=== PATIENT | female | born 1990 | race Caucasian/White ===

== ENCOUNTER 2019-04-09 17:18 | Emergency (ER) | payer OTHER, SELFPAY ==
[2019-04-09 17:28] VITALS: BP 127/72; PULSE 88; RESP 15; TEMP 37.3; O2SAT 100; BMI 18.8
[2019-04-09 18:01] LABS: Add Manual Diff / Slide Review NO; Basophils Absolute Auto 0 /uL (0-100); Basophils Percent Auto 0.3 % (0-2); Eosinophils Absolute Auto 300 /uL (0-450); Eosinophils Percent Auto 3.2 % (2-4); Hematocrit 37.3 % (36-46); Hemoglobin 12.5 g/dL (12.0-16.0); Lymphocytes Absolute Auto 2100 /uL (1100-4500); Lymphocytes Percent Auto 20.7 % (25-40); Mean Corpuscular HGB Conc 33.5 % (30-36); Mean Corpuscular Hemoglobin 29.4 PG (26-34); Mean Corpuscular Volume 87.7 fL (80-100); Monocytes Absolute Auto 600 /uL (0-900); Monocytes Percent Auto 6.2 % (3-14); Neutrophils Absolute Auto 7000 /uL (1500-7000); Neutrophils Percent Auto 69.6 % (50-75); Platelet Count 334 X10^3/uL (150-400); Red Blood Cell Count 4.25 X10^6/uL (4.0-5.2); Red Cell Distribution Width 14.3 % (11.6-14.8)
[2019-04-09 18:31] LABS: Alanine Aminotransferase 9 IU/L (9-52); Albumin 4.2 g/dL (3.5-5.0); Albumin Globulin Ratio 1.3 (1.0-2.8); Alkaline Phosphatase 58 U/L (38-126); Aspartate Aminotransferase 19 IU/L (14-36); BUN Creatinine Ratio 12.9 (6-22); Bilirubin Total 0.3 mg/dL (0.2-1.3); Blood Urea Nitrogen 9 mg/dL (7-17); Calcium 9.1 mg/dL (8.4-10.2); Carbon Dioxide 23 mmol/L (22-32); Chloride 106 mmol/L (98-107); Estimated Glomerular Filt Rate > 60.0 mL/min (>60); Globulin 3.2 g/dL (1.7-4.1); Glucose 99 mg/dL (70-100); HEMOLYSIS < 15 (0-50); Potassium 3.5 mmol/L (3.4-5.1); Sodium 138 mmol/L (137-145); Total Protein 7.4 g/dL (6.3-8.2)
--- NOTE | 2019-04-09 18:42 | ED_ITS ---
HPI - General Adult General Chief complaint: Dizziness Stated complaint: 10 wks preg,dizziness,numb hands Time Seen by Provider: 04/09/19 17:58 Source: patient Mode of arrival: ambulatory Limitations: no limitations History of Present Illness HPI narrative: 28-year-old at approximately 10 weeks EGA. Is not com plaining of any abdominal pain or vaginal bleeding or urinary symptoms. She states she is here for an episode that occurred today. Lasted approximately 1 hour where she had times where she felt like she was confused. States that she could not think of words that she wanted to stay. Generally did not feel very well. Had no chest pain or shortness of breath or palpitations during that time. She states she does have a history of migraines. States that her migraines do get worse when she is . Just prior to the onset of these symptoms she stated that she felt like she was going to get a migraine but did not have a full-blown headache. She states she had very similar symptoms skyler ral weeks ago that again started with her symptoms of a migraine. She states that that time the symptoms were not as bad as with a or today. The time my evaluation patient's symptoms had completely resolved. She has not tried anything for symptoms prior to arrival. Related Data Previous Rx's Medication Instructions Recorded ondansetron [Zofran ODT] 4 mg SUBLINGUAL Q6HP PRN #12 odt 09/14/17 oseltamivir [Tamiflu] 75 mg OR BID #10 cap 09/14/17 Allergies Allergy/AdvReac Type Severity Reaction Status Date / Time amoxicillin [AMOXICILLIN] Allergy Intermediate hives Unverified 12/10/17 12:30 Review of Systems Constitutional Denies fever(s) Eyes Comments: Blurry vision ENT Ears, Nose, Mouth, and Throat: Reports dizziness and Reports disequilibrium Cardiovascular Denies chest pain and Denies palpitations Respiratory Denies cough Gastrointestinal Gastrointestinal: Denies abdominal pain, Denies nausea and Denies vomiting Genitourinary Denies dysuria, Denies pelvic pain and Denies vaginal discharge Musculoskeletal Denies abnormal gait, Denies myalgias and Denies arthralgias Integumentary/Breasts Denies new lesions and Denies rash Neurologic Denies abnormal gait, Reports confusion, Reports dizziness, Denies focal weakness and Reports disequilibrium Psychiatric Reports confusion Endocrine Denies palpitations Hematologic/Lymphatic Denies easy bleeding and Denies easy bruising [facility] Medical History Migraines (Acute) Social History Smoking Status: Never smoker Social History Smoking Status: Never smoker Exam Initial Vital Signs Initial Vital Signs: Vital Signs Temperature 99.1 F 04/09/19 17:28 Pulse Rate 88 04/09/19 17:28 Respiratory Rate 15 04/09/19 17:28 Blood Pressure 127/72 04/09/19 17:28 Pulse Oximetry 100 04/09/19 17:28 Const General: cooperative, healthy appearing, comfortable, well developed and No acute distress Orientation: alert, awake and oriented x3 HENMT Head: normal to inspection and normocephalic Eyes Pupils: PERRL EOM: EOM intact bilaterally Resp Effort & Inspection: normal respiratory effort Auscultation: clear to auscultation bilaterally Cardio Rate: regular rate Rhythm: regular rhythm Pulses: radial pulses present GI Inspection: non-distended Palpation: soft, No firm and No tender Skin Lesions: no lesions Rashes: no rashes Neuro General: alert, awake and oriented x3 Cranial Nerves: CN's II-XI intact bilaterally Cognition: normal cognition Speech: speech normal Gait: normal gait Motor: muscle tone normal throughout Sensory Exam: no sensory deficits noted Coordination: [id number] test normal Extrem General: normal to inspection and capillary refill normal Psych Appearance: grossly normal and well kempt Scores GCS Cedar coma scale eye opening: Spontaneous Cedar coma scale verbal response: Orientated Cedar coma scale motor response: Obey commands Merrill coma scale total score: 15 NIH Stroke Scale Level of Conciousness: Alert, keenly responsive Ask month/age: Answers both questions correctly. Open/close eyes, close hand: Performs both tasks correctly Best gaze horizontal: Normal Visual downs: No visual loss Facial palsy: Normal symetrical movement Left arm drift: No drift for full 10 sec Right arm drift: No drift for full 10 sec Left leg drift: No drift for full 10 sec Right leg drift: No drift for full 10 sec Limb ataxia: Absent Sensory on face/arms/legs: Normal, no sensory loss Best language: No aphasia, normal Dysarthria: Normal Extinction or inattention: No abnormality Total NIH Stroke scale score: 0 Course Orders Ordered: ED Orders 04/09/19 17:55 CMP [Comprehensive Metabolic Panel] Stat Complete Blood Count AUTO DIFF Stat Vital Signs - 8 hr 04/09/19 17:28 04/09/19 18:53 04/09/19 19:11 Temperature 99.1 F Pulse Rate 88 70 77 Respiratory Rate 15 16 Blood Pressure 127/72 110/82 Blood Pressure [Right Arm] 110/82 Pulse Oximetry 100 100 99 Medical Decision Making Lab Data Lab results reviewed: Yes I reviewed the patient's lab results. Result diagrams: 04/09/19 17:55 04/09/19 17:55 Lab Results 04/09/19 04/09/19 Range/Units 17:55 17:55 WBC 10.0 (4.5-11.0) X10^3/uL RBC 4.25 (4.0-5.2) X10^6/uL Hgb 12.5 (12.0-16.0) g/dL Hct 37.3 (36-46) % MCV 87.7 (80-100) fL MCH 29.4 (26-34) PG MCHC 33.5 (30-36) % RDW 14.3 (11.6-14.8) % Plt Count 334 (150-400) X10^3/uL Neut % (Auto) 69.6 (50-75) % Lymph % (Auto) 20.7 L (25-40) % Ramsey % (Auto) 6.2 (3-14) % Eos % (Auto) 3.2 (2-4) % Baso % (Auto) 0.3 (0-2) % Neut # (Auto) 7000 (0763-0731) /uL Lymph # (Auto) 2100 (8053-3232) /uL Ramsey # (Auto) 600 (0-900) /uL Eos # (Auto) 300 (0-450) /uL Baso # (Auto) 0 (0-100) /uL Sodium 138 (137-145) mmol/L Potassium 3.5 (3.4-5.1) mmol/L Chloride 106 (98-107) mmol/L Carbon Dioxide 23 (22-32) mmol/L BUN 9 (7-17) mg/dL Creatinine 0.70 (0.52-1.04) mg/dL Estimated GFR > 60.0 (>60) mL/min BUN/Creatinine Ratio 12.9 (6-22) Glucose 99 (70-100) mg/dL Calcium 9.1 (8.4-10.2) mg/dL Total Bilirubin 0.3 (0.2-1.3) mg/dL AST 19 (14-36) IU/L ALT 9 (9-52) IU/L Alkaline Phosphatase 58 (38-126) U/L Total Protein 7.4 (6.3-8.2) g/dL Albumin 4.2 (3.5-5.0) g/dL Globulin 3.2 (1.7-4.1) g/dL Albumin/Globulin Ratio 1.3 (1.0-2.8) MDM Narrative Medical decision making narrative: Patient's labs are unremarkable. She is asymptomatic here in the emergency department. She has no OB related symptoms. She stated that her symptoms today and also prior to the event a couple weeks ago did start with which she thought was going to be migraine. I have low suspicion for TIA or CVA. I do suspect that her symptoms could be the result of an atypical migraine. I did discuss all this with the patient. She was given return precautions and follow-up instructions. Will have her see her OB and also her primary provider. She expressed understanding and agreement with plan. Discharge Plan Departure Patient Disposition: Home Clinical Impression: Migraine Qualifiers: Migraine type: unspecified Status migrainosus presence: without status migrainosus Intractability: not intractable Qualified Code(s): G43.909 - Migraine, unspecified, not intractable, without status migrainosus Qualifiers: Weeks of gestation: 10 weeks Qualified Code(s): Z3A.10 - 10 weeks gestation of Discharge Date/Time: 04/09/19 19:12 Interventions: ED Discharge Assessment Last Done: 04/09/19 19:11 Instructions: Migraine -- Adult Activity Restrictions/Additional Instructions: Continue to take your vitamins. Contact your OB provider and also your primary provider to discuss the symptoms that brought you to the emergency department this evening. Return to the emergency department for any other new or worsening symptoms like we discussed Prescriptions: No Action oseltamivir [Tamiflu] 75 MG capsule 75 mg OR BID Qty: 10 RF: 0 ondansetron [Zofran ODT] 4 MG tablet,disintegrating 4 mg Sublingual Q6HP PRNQty: 12 RF: 0 Referrals: Luma Lucia ND [Primary Care Provider] -
[2019-04-09 18:53] VITALS: BP 110/82; PULSE 70; O2SAT 100
[2019-04-09 19:11] VITALS: BP 110/82; PULSE 77; RESP 16; O2SAT 99
== END 2019-04-09 19:12 | disposition home or self-care (01) ==
PROVIDERS: Emergency Medicine; Emergency Provider Emergency Medicine; PCP Naturopath
DX: G43.909 Migraine, unspecified, not intractable, without status migrainosus (principal); Z33.1 Pregnant state, incidental
CPT/HCPCS: 36591; 80053; 85025; 99282; 99283

== ENCOUNTER 2019-09-02 11:26 | Emergency (ER) | payer OTHER, MEDICAID, SELFPAY ==
[2019-09-02 11:39] VITALS: BP 98/62; PULSE 98; RESP 18; TEMP 36.7; O2SAT 98; BMI 20.5
[2019-09-02 12:47] LABS: Influenza A - CEPHEID Flu A NEGATIVE (NEGATIVE); Influenza B - CEPHEID Flu B POSITIVE (NEGATIVE)
--- NOTE | 2019-09-02 12:55 | ED.URI ---
HPI - URI/Sore Throat <ALEXI Coronado - Last Filed: 09/02/19 17:47> General Chief Complaint: Upper Respiratory Symptoms Stated Complaint: ear drum burst Time Seen by Provider: 09/02/19 11:29 Source: patient Mode of arrival: Ambulatory Limitations: no limitations History of Present Illness HPI Narrative: The patient is a 28-year-old female who is 31 weeks who presents with a chief complaint of ?I think I burst my ear drums.She states that she has done this before and feels as though his consistent. She complains of general malaise, sore throat, cough congestion for the past 8 days. She states that she called her PCPs office a few days ago. She denies any nausea or vomiting, abdominal pain, shortness of breath or chest pain. She states she has used Tylenol for pain. She denies any dysuria urgency or frequency denies any vaginal discharge or bleeding. States that movement is good. She states that she has no concerns about her baby. She is pushing fluids, broth etcetera at home. Related Data Previous Rx's Medication Instructions Recorded nitrofurantoin monohyd/m-cryst 100 mg PO Q12H 5 Days #10 cap 09/02/19 [Macrobid] ofloxacin 10 drop EAR-BOTH DAILY 7 Days #10 09/02/19 ml Allergies Allergy/AdvReac Type Severity Reaction Status Date / Time amoxicillin [AMOXICILLIN] Allergy Intermediate hives Verified 09/02/19 11:39 Review of Systems <MARQUIS Coronado - Last Filed: 09/02/19 17:47> Review of Systems Narrative: GENERAL: See HPI HEENT: See HPI RESPIRATORY: See HPI CARDIOVASCULAR: Denies chest pain, palpitations, orthopnea, edema, GASTROINTESTINAL: Denies nausea, vomiting, abdominal pain, diarrhea, constipation, melena. : see HPI MUSCULOSKELETAL: denies weakness, joint pain, or bony pain SKIN: Denies rash, skin lesions, or other NEUROLOGIC: Denies weakness, headache, numbness, change in speech, confusion, seizures, incoordination. PSYCHIATRIC: No concerning psychosocial issues. 12 point review of systems is negative except for those stated above Patient History <ALEXI Coronado - Last Filed: 09/02/19 17:47> Medical History Migraines (Acute) Social History Smoking Status: Never smoker Smoking Status: Never smoker Substance Use Type: does not use Exam <ALEXI Coronado - Last Filed: 09/02/19 17:47> Narrative Exam Narrative: GENERAL: This is a well-nourished, well-developed patient, in mild distress. HEAD: Atraumatic. Normocephalic. No temporal or scalp tenderness. EYES: Pupils equal round and reactive. Extraocular motions intact. No scleral icterus. No injection or drainage. ENT: Nose without bleeding, purulent drainage or septal hematoma. Throat without erythema, tonsillar hypertrophy or exudate. Uvula midline. Airway patent. Bilateral tympanic membrane perforation, bloody drainage noted bilateral canal NECK: Trachea midline. No JVD or lymphadenopathy. Supple, nontender, no meningeal signs. CARDIOVASCULAR: Regular rate and rhythm without murmurs, gallops, or rubs. RESPIRATORY: Clear to auscultation. Breath sounds equal bilaterally. No wheezes, rales, or rhonchi. Occasional dry sounding cough. Speaking full sentences. No increased respiratory effort. GASTROINTESTINAL: Abdomen soft, non-tender, nondistended. No hepato-splenomegaly, or palpable masses. No guarding. Active bowel sounds. Palpable uterine fundus. EXTREMITIES: No clubbing, cyanosis, or edema. No joint tenderness, effusion, or edema noted. BACK: Nontender without deformity or crepitance. No flank tenderness. NEURO: AOx3. SKIN: No rash or erythema on visible skin Initial Vital Signs Initial Vital Signs: Vital Signs Temperature 98.1 F 09/02/19 11:39 Pulse Rate 98 H 09/02/19 11:39 Respiratory Rate 18 09/02/19 11:39 Blood Pressure 98/62 09/02/19 11:39 Pulse Oximetry 98 09/02/19 11:39 <Sharon Woodall DO - Last Filed: 09/02/19 19:11> Initial Vital Signs Initial Vital Signs: Vital Signs Temperature 98.1 F 09/02/19 11:39 Pulse Rate 98 H 09/02/19 11:39 Respiratory Rate 18 09/02/19 11:39 Blood Pressure 98/62 09/02/19 11:39 Pulse Oximetry 98 09/02/19 11:39 Course <ALEXI Coronado - Last Filed: 09/02/19 17:47> Orders Ordered: ED Orders 09/02/19 12:03 Influenza A & B (PCR) Stat 09/02/19 12:49 Urine Microscopic Stat Vital Signs Vital signs: Vital Signs - 8 hr 09/02/19 11:39 09/02/19 14:32 Temperature 98.1 F Pulse Rate 98 H 94 H Respiratory Rate 18 16 Blood Pressure 98/62 100/68 Pulse Oximetry 98 97 <Sharon Woodall DO - Last Filed: 09/02/19 19:11> Orders Ordered: ED Orders 09/02/19 12:03 Influenza A & B (PCR) Stat 09/02/19 12:49 Urine Microscopic Stat Vital Signs Vital signs: Vital Signs - 8 hr 09/02/19 11:39 09/02/19 14:32 Temperature 98.1 F Pulse Rate 98 H 94 H Respiratory Rate 18 16 Blood Pressure 98/62 100/68 Pulse Oximetry 98 97 MDM - URI/Sore Throat <ALEXI Coronado - Last Filed: 09/02/19 17:47> Lab Data Labs: Lab Results 09/02/19 09/02/19 Range/Units 12:03 12:49 Urine RBC 0-1/hpf (0-5/HPF) Urine WBC 1-5/hpf (0-5/HPF) Ur Squamous Epith Cells 1-5 /hpf (0-5/HPF) Urine Bacteria Few (2-10) H (None) Urine Mucus 1+ H (Negative) Ur Culture Indicated? Cult not indicated Influenza A (RT-PCR) Flu a negative (NEGATIVE) Influenza B (RT-PCR) Flu b positive H (NEGATIVE) Urine Dip Bedside Urine Glucose Negative Bedside Urine Bilirubin - Negative Bedside Urine Ketone +++ 80 Urine Specific Philo 1.015 Bedside Urine Occult Blood - Negative Bedside Urine pH 6.0 Bedside Urine Protein + 30 Bedside Urine Urobilinogen +/- 1mg Bedside Urine Nitrite - Negative Bedside Urine Leukocytes - Negative Esterase MDM Narrative Medical decision making narrative: The patient is a 28-year-old female who presents with a chief complaint of 8 days of not feeling well, fevers, general malaise etc.. She is concerned that she perforated both tympanic membranes. She test positive for influenza B, unfortunately she is out of window for Tamiflu as she has had symptoms for 8 days. Exam shows bilateral possible TM perforation, with bloody drainage noted. She was started on ofloxacin. Urinalysis noted bacteria, and she was started on Macrobid for this as she is , and is safe for 31 weeks. heart tones in the 140s. Overall she states that she feels like ?the baby is really well and very active.Encouraged rest, pushing fluids etcetera. Patient states she feels ready to go home and has no questions or concerns upon discharge and states understanding of return precautions as well as follow-up care. <Sharon Woodall, DO - Last Filed: 09/02/19 19:11> Lab Data Labs: Lab Results 09/02/19 09/02/19 Range/Units 12:03 12:49 Urine RBC 0-1/hpf (0-5/HPF) Urine WBC 1-5/hpf (0-5/HPF) Ur Squamous Epith Cells 1-5 /hpf (0-5/HPF) Urine Bacteria Few (2-10) H (None) Urine Mucus 1+ H (Negative) Ur Culture Indicated? Cult not indicated Influenza A (RT-PCR) Flu a negative (NEGATIVE) Influenza B (RT-PCR) Flu b positive H (NEGATIVE) Urine Dip Bedside Urine Glucose Negative Bedside Urine Bilirubin - Negative Bedside Urine Ketone +++ 80 Urine Specific Philo 1.015 Bedside Urine Occult Blood - Negative Bedside Urine pH 6.0 Bedside Urine Protein + 30 Bedside Urine Urobilinogen +/- 1mg Bedside Urine Nitrite - Negative Bedside Urine Leukocytes - Negative Esterase Discharge Plan Departure Patient Disposition: Home Clinical Impression: Influenza, Rupture of both tympanic membranes, Asymptomatic bacteriuria in Discharge Date/Time: 09/02/19 14:33 Instructions: DI for Tympanic Membrane Perforation-Adult, DI for Urinary Tract Infection (UTI), DI for Influenza -- Adult Activity Restrictions/Additional Instructions: Today you tested positive for the flu. I also found perforated tympanic membranes in your ears. Unfortunately since you have had symptoms for 8 days, your not a candidate for Tamiflu. I have sent a prescription for antibiotic drops to [facility]. Use these in both ears for 7 days. We also found bacteria in your urine, which we will treat since her as I discussed. [facility]. This medication is to be avoided in early as well as late , but at 31 weeks it is safe. Please follow-up with primary care provider as well as your OB provider. Please come back to the emergency department for any acute concerns. Please rest and push fluids. Prescriptions: New nitrofurantoin monohyd/m-cryst [Macrobid] 100 mg capsule 100 mg PO Q12H 5 Days Qty: 10 RF: 0 ofloxacin 0.3 % drops 10 drop EAR-BOTH DAILY 7 Days Qty: 10 RF: 0 Referrals: Luma Lucia ND [Primary Care Provider] -
[2019-09-02 13:40] LABS: Bacteria Urine Few (2-10); Culture Indicated Urine Cult Not Indicated; Mucus Urine 1+ (Negative); RBC Urine 0-1/HPF (0-5/HPF); Squamous Epithelial Cell Urine 1-5 /HPF (0-5/HPF); WBC Urine 1-5/HPF (0-5/HPF)
[2019-09-02 14:32] VITALS: BP 100/68; PULSE 94; RESP 16; O2SAT 97
== END 2019-09-02 14:33 | disposition home or self-care (01) ==
PROVIDERS: Emergency Provider Nurse Practitioner Family; Family Provider Family Medicine; PCP Naturopath
DX: O23.43 Unspecified infection of urinary tract in pregnancy, third trimester (principal); J10.1 Influenza due to other identified influenza virus with other respiratory manifestations; H72.93 Unspecified perforation of tympanic membrane, bilateral; Z3A.31 31 weeks gestation of pregnancy
CPT/HCPCS: 81003; 81015; 87502; 99282; 99283